=== PATIENT | male | born 1965 | race Caucasian/White ===

== ENCOUNTER 2017-04-18 06:47 | Emergency (ER) | payer OTHER ==
[~2017-04-18 06:47] MED LIST: ATARAX PO; AUGMENTIN PO; FLEXERIL10 MG PO; MEDROL4 MG/DOSE- PO; NO MEDICATIONS; PATANOL5 ML OP; PEN-VEE K PO; PREDNISONE PO; ULTRAM PO; VICODIN 5/500 T1 TAB PO
== END 2017-04-18 07:34 | disposition home or self-care (01) ==
LOC: SED 06:47
DX: I88.9 Nonspecific lymphadenitis, unspecified (principal); Z98.890 Other specified postprocedural states; F17.210 Nicotine dependence, cigarettes, uncomplicated
CPT/HCPCS: 87651; 99283